=== PATIENT | female | born 1995 | race American Indian/Alaskan Native ===

== ENCOUNTER 2022-12-30 20:01 | Emergency (ER) | payer MEDICAID ==
[2022-12-30] MEDS ORDERED: Albuterol/Ipratropium 3.0-0.5 MG/3 ML Neb Soln NEB ONE (20:30)
[2022-12-30] MEDS ORDERED: methylPREDNISolone Sodium Succinate 125 MG/2 ML SDV IM ONE (20:30)
[2022-12-30 20:48] LABS: BASOPHILS ABSOLUTE AUTO 0.1 x10-3/uL (0.0-0.1); BASOPHILS PERCENT AUTO 0.5 % (0.2-1.5); EOSINOPHILS ABSOLUTE AUTO 0.3 x10-3/uL (0.0-0.8); EOSINOPHILS PERCENT AUTO 1.9 % (0.6-8.1); HEMATOCRIT 35.2 % (34.2-48.2); HEMOGLOBIN 11.6 g/dL (11.4-15.5); LYMPHOCYTES ABSOLUTE AUTO 3.1 x10-3/uL (1.0-4.4); LYMPHOCYTES PERCENT AUTO 23.5 % (18.4-52.1); MEAN CORPUSCULAR HGB CONC 32.9 g/dL (31.9-34.8); MEAN CORPUSCULAR VOLUME 88.2 fL (76.7-100.5); MEAN PLATELET VOLUME 8.2 fL (7.1-12.4); MONOCYTES ABSOLUTE AUTO 0.7 x10-3/uL (0.3-1.0); MONOCYTES PERCENT AUTO 5.5 % (4.4-15.7); NEUTROPHILS ABSOLUTE AUTO 9.2 x10-3/uL (1.5-6.3); NEUTROPHILS PERCENT AUTO 68.6 % (30.8-76.2); PLATELET COUNT,PLT 312 x10(3)uL (151-488); RED CELL DISTRIBUTION WIDTH 15.2 % (12.3-16.5); WHITE BLOOD CELL COUNT,WBC 13.4 x10-3/uL (3.0-10.3)
[2022-12-30 20:52] LABS: BLOOD UREA NITROGEN,BUN 11 mg/dL (7-18); BUN/CREATININE RATIO 12.2 (9-20); CALCIUM 8.4 mg/dL (8.6-10.2); CARBON DIOXIDE,CO2 24 mmol/L (21-32); CHLORIDE,CL 106 mmol/L (100-110); CREATININE 0.9 mg/dL (0.55-1.02); EST CRCL DRUG DOSING (CG) 93.88 mL/min; ESTIMATED GFR 89 mL/min (>60); GLUCOSE RANDOM 138 mg/dL (80-116); POTASSIUM,K 3.7 mmol/L (3.5-5.3); SODIUM,NA 141 mmol/L (135-145)
[2022-12-30 20:58] LABS: A/G RATIO 0.8; ALANINE AMINOTRANSFERASE,ALT 29 U/L (12-36); ALKALINE PHOSPHATASE 134 IU/L (56-112); ASPARTATE AMNIOTRANSFERASE,AST 17 IU/L (5-25); BILIRUBIN TOTAL 0.1 mg/dL (0.1-1.3); PROTEIN TOTAL,TP 6.7 g/dL (6.0-8.0)
== END 2022-12-30 21:32 | disposition home or self-care (01) ==
LOC: FB.ED 20:01
DX: R09.1 Pleurisy (principal); F17.210 Nicotine dependence, cigarettes, uncomplicated; Z91.011 Allergy to milk products
CPT/HCPCS: 36415; 71045; 80053; 84484; 85025; 85379; 93005; 94640; 96372; 99285; J2930; J7620

== ENCOUNTER 2023-01-27 20:07 | Emergency (ER) | payer MEDICAID ==
[2023-01-27] MEDS: Albuterol/Ipratropium 3.0-0.5 MG/3 ML Neb Soln NEB ONE (20:40)
[2023-01-27] MEDS: methylPREDNISolone Sodium Succinate 125 MG/2 ML SDV IM ONE (20:40)
== END 2023-01-27 21:29 | disposition home or self-care (01) ==
LOC: FB.ED 20:07
DX: J45.901 Unspecified asthma with (acute) exacerbation (principal); U07.0 Vaping-related disorder; Z91.011 Allergy to milk products; Z87.891 Personal history of nicotine dependence
CPT/HCPCS: 71045; 96372; 99283; 99285; J2930; J7620

== ENCOUNTER 2023-07-25 21:41 | Emergency (ER) | payer MEDICAID ==
[2023-07-25 22:25] LABS: BASOPHILS ABSOLUTE AUTO 0.1 x10-3/uL (0.0-0.1); BASOPHILS PERCENT AUTO 0.7 % (0.2-1.5); EOSINOPHILS ABSOLUTE AUTO 0.3 x10-3/uL (0.0-0.8); HEMATOCRIT 36.5 % (34.2-48.2); HEMOGLOBIN 12.3 g/dL (11.4-15.5); LYMPHOCYTES ABSOLUTE AUTO 3.2 x10-3/uL (1.0-4.4); LYMPHOCYTES PERCENT AUTO 25.1 % (18.4-52.1); MEAN CORPUSCULAR HEMOGLOBIN 30.4 pg (23.9-33.9); MEAN CORPUSCULAR HGB CONC 33.8 g/dL (31.9-34.8); MEAN CORPUSCULAR VOLUME 90.1 fL (76.7-100.5); MEAN PLATELET VOLUME 8.1 fL (7.1-12.4); MONOCYTES ABSOLUTE AUTO 0.7 x10-3/uL (0.3-1.0); MONOCYTES PERCENT AUTO 5.7 % (4.4-15.7); NEUTROPHILS ABSOLUTE AUTO 8.5 x10-3/uL (1.5-6.3); NEUTROPHILS PERCENT AUTO 66.5 % (30.8-76.2); PLATELET COUNT,PLT 304 x10(3)uL (151-488); RED BLOOD CELL COUNT 4.06 x10(6)uL (3.60-5.20); RED CELL DISTRIBUTION WIDTH 15.5 % (12.3-16.5); WHITE BLOOD CELL COUNT,WBC 12.8 x10-3/uL (3.0-10.3)
[2023-07-25 22:32] LABS: BLOOD UREA NITROGEN,BUN 11 mg/dL (7-18); BUN/CREATININE RATIO 13.8 (9-20); CALCIUM 8.7 mg/dL (8.6-10.2); CARBON DIOXIDE,CO2 28 mmol/L (21-32); CHLORIDE,CL 104 mmol/L (100-110); CREATININE 0.8 mg/dL (0.55-1.02); EST CRCL DRUG DOSING (CG) 104.67 mL/min; ESTIMATED GFR 102 mL/min (>60); GLUCOSE RANDOM 100 mg/dL (80-116); POTASSIUM,K 3.7 mmol/L (3.5-5.3); SODIUM,NA 137 mmol/L (135-145)
[2023-07-25 22:37] LABS: BILIRUBIN,URINE NEGATIVE (NEGATIVE); GLUCOSE,URINE NORMAL (NORMAL); KETONES,URINE NEGATIVE (NEGATIVE); LEUKOCYTE ESTERASE,URINE NEGATIVE (NEGATIVE); NITRITE,URINE NEGATIVE (NEGATIVE); OCCULT BLOOD,URINE NEGATIVE (NEGATIVE); PROTEIN,URINE NEGATIVE (NEGATIVE); UROBILINOGEN,URINE NORMAL (NEGATIVE)
[2023-07-25 22:38] LABS: A/G RATIO 0.8; ALANINE AMINOTRANSFERASE,ALT 32 U/L (12-36); ALBUMIN 3.3 g/dL (3.5-5.2); ALKALINE PHOSPHATASE 127 IU/L (56-112); ASPARTATE AMNIOTRANSFERASE,AST 13 IU/L (5-25); BILIRUBIN TOTAL 0.3 mg/dL (0.1-1.3); PROTEIN TOTAL,TP 7.3 g/dL (6.0-8.0)
[2023-07-25 22:45] LABS: APPEARANCE,URINE CLEAR (CLEAR); BACTERIA,URINE FEW (NS); COLOR,URINE YELLOW (YELLOW); MUCUS,URINE FEW (NS); RBC,URINE 0-5 (0-5); SQUAMOUS EPITHELIAL CELLS,UR OCCASIONAL (NS,R,O); WBC,URINE 0-5 (0-5)
[2023-07-25] MEDS ORDERED: Iopamidol 755 Mg/ML 100 ML Bottle IV SCH (23:30)
== END 2023-07-26 00:35 | disposition home or self-care (01) ==
LOC: FB.ED 21:41
DX: R10.84 Generalized abdominal pain (principal); J45.909 Unspecified asthma, uncomplicated; Z91.011 Allergy to milk products; Z79.899 Other long term (current) drug therapy
CPT/HCPCS: 36415; 71260; 74177; 80053; 81001; 81025; 83690; 84484; 85025; 93005; 93010; 99283; 99285; Q9967

== ENCOUNTER 2023-10-23 06:35 | Day surgery (SDC) | payer MEDICAID ==
[2023-10-23] MEDS ORDERED: Propofol 200 MG/20 ML SDV IV ONE (06:36)
[2023-10-23] MEDS ORDERED: Ondansetron 4 MG/2 ML SDV IVPUSH ONE (06:36)
[2023-10-23] MEDS ORDERED: Midazolam 1 MG/ML 2 ML SDV IV ONE (06:36)
[2023-10-23] MEDS ORDERED: fentaNYL 100 MCG/2 ML SDV IV ONE (06:36)
[2023-10-23] MEDS ORDERED: Sodium Chloride 0.9% 10 ML Syringe FLUSH PRN (07:00)
[2023-10-23] MEDS: Lactated Ringers 1,000 ML IV SCH (07:42)
[2023-10-23] MEDS: Simethicone Drops 40 MG/0.6 ML 30 ML Bottle PO ONE (08:28)
== END 2023-10-23 09:50 | disposition home or self-care (01) ==
LOC: FB.SDS 06:35
PROVIDERS: ATTEND Surgery
DX: K60.2 Anal fissure, unspecified (principal); K62.89 Other specified diseases of anus and rectum; K62.5 Hemorrhage of anus and rectum; F17.210 Nicotine dependence, cigarettes, uncomplicated; Z91.011 Allergy to milk products
CPT/HCPCS: 00811; 81025; A9270-GY; J2250; J2405; J2704; J3010; J7120

== ENCOUNTER 2023-12-16 06:11 | Day surgery (SDC) | payer MEDICAID ==
[2023-12-16] MEDS ORDERED: Ondansetron 4 MG/2 ML SDV IVPUSH ONE (06:12)
[2023-12-16] MEDS ORDERED: fentaNYL 100 MCG/2 ML SDV IV ONE (06:12)
[2023-12-16] MEDS ORDERED: Midazolam 1 MG/ML 2 ML SDV IV ONE (06:12)
[2023-12-16] MEDS ORDERED: Sodium Chloride 0.9% 10 ML Syringe FLUSH PRN (06:15)
[2023-12-16] MEDS: Lactated Ringers 1,000 ML IV SCH (07:56)
[2023-12-16] MEDS: ceFAZolin 1 GM Vial IVPUSH ONE (07:58)
[2023-12-16] MEDS: Bupivacaine 0.5% 50 ML MDV INJECT ONE (08:25)
[2023-12-16] MEDS: Sodium Bicarbonate 8.4% 50 MEQ/50 ML Syringe ONE (08:25)
[2023-12-16] MEDS: Lidocaine 1% with EPINEPHrine 1:100,000 20 ML MDV INJECT ONE (08:25)
== END 2023-12-16 09:39 | disposition home or self-care (01) ==
LOC: FB.SDS 06:11
PROVIDERS: ATTEND Surgery
DX: L73.2 Hidradenitis suppurativa (principal); F17.210 Nicotine dependence, cigarettes, uncomplicated
CPT/HCPCS: 00400; 81025; 88304; J0665; J0690; J2250; J2405; J3010; J7120

== ENCOUNTER 2024-02-02 20:33 | Emergency (ER) | payer MEDICAID ==
[2024-02-02] MEDS: Sulfamethoxazole/Trimethoprim 800-160 MG Tab PO ONE (21:10)
== END 2024-02-02 21:21 | disposition home or self-care (01) ==
LOC: FB.ED 20:33
DX: L02.32 Furuncle of buttock (principal); J45.909 Unspecified asthma, uncomplicated; E66.9 Obesity, unspecified; Z91.011 Allergy to milk products; Z88.5 Allergy status to narcotic agent; Z88.1 Allergy status to other antibiotic agents
CPT/HCPCS: 10060; 99283; A9270

== ENCOUNTER 2024-04-28 20:30 | Emergency (ER) | payer MEDICAID ==
[2024-04-28] MEDS: Amoxicillin/Clavulanate K 875-125 MG Tab PO ONE (21:08)
== END 2024-04-28 21:22 | disposition home or self-care (01) ==
LOC: FB.ED 20:30
DX: J06.9 Acute upper respiratory infection, unspecified (principal); H66.93 Otitis media, unspecified, bilateral; H10.9 Unspecified conjunctivitis; E66.9 Obesity, unspecified; Z91.011 Allergy to milk products; Z88.1 Allergy status to other antibiotic agents; Z88.8 Allergy status to other drugs, medicaments and biological substances; Z68.42 Body mass index [BMI] 45.0-49.9, adult
CPT/HCPCS: 99283; A9270

== ENCOUNTER 2024-05-27 22:28 | Emergency (ER) | payer MEDICAID ==
[2024-05-27] MEDS: diphenhydrAMINE 50 MG/ML SDV IVPUSH ONE (23:06)
[2024-05-27] MEDS: Sodium Chloride 0.9% 500 ML IV ONE (23:06)
[2024-05-27] MEDS: Prochlorperazine 10 MG/2 ML SDV IVPUSH ONE (23:07)
== END 2024-05-28 00:21 | disposition home or self-care (01) ==
LOC: FB.ED 22:28
DX: G43.909 Migraine, unspecified, not intractable, without status migrainosus (principal); J45.909 Unspecified asthma, uncomplicated; E66.9 Obesity, unspecified; F17.210 Nicotine dependence, cigarettes, uncomplicated; Z91.011 Allergy to milk products; Z88.8 Allergy status to other drugs, medicaments and biological substances; Z79.899 Other long term (current) drug therapy
CPT/HCPCS: 96361; 96374; 96375; 99283; J0780; J1200; J7040